=== PATIENT | male | born 1990 | race Caucasian/White ===

== ENCOUNTER 2022-03-20 20:49 | Emergency (ER) | payer OTHER ==
[~2022-03-20] VITALS: Ht 185.4 cm; Wt 88.5 kg
[2022-03-20] MEDS ORDERED: PROCHLORPERAZINE EDISYLATE 10 MG/2 ML VIAL IV ONE ×2 (21:15→23:30)
[2022-03-20] MEDS ORDERED: IV NS 1000 ML 1,000 ML IV ONE ×2 (21:15→22:30)
[2022-03-20] MEDS ORDERED: IV NORMAL SALINE 1000 ML BAG IV ONE (21:15)
[2022-03-20] MEDS ORDERED: HYDROMORPHONE 1 MG/1 ML DISP.SYRIN IV ONE ×2 (21:15→22:30)
[2022-03-20] MEDS ORDERED: PROCHLORPERAZINE EDISYLATE 10 MG/2 ML VIAL ONE ×2 (21:30→23:34)
--- NOTE | 2022-03-20 21:30 | NUR ---
Dr Tomas at bedside, MSE in progress
[2022-03-20] MEDS ORDERED: HYDROMORPHONE 1 MG/1 ML DISP.SYRIN ONE ×2 (21:41→22:33)
[2022-03-20 21:59] LABS: HEMATOCRIT 47.9 % (36.7-47.1); MEAN CORPUSCULAR HEMOGLOBIN 30.1 uug (23.8-33.4); MEAN CORPUSCULAR VOLUME 87.5 fL (73.0-96.2); PLATELET COUNT (AUTO) 183 K/uL (152-348)
[2022-03-20 22:03] LABS: CREATININE 1.1 mg/dL (0.6-1.3); POTASSIUM 3.7 mmol/L (3.5-5.1)
[2022-03-20 22:09] LABS: BILIRUBIN,DIRECT 0.2 mg/dL (0.0-0.2); BILIRUBIN,TOTAL 1.2 mg/dL (0.2-1.0); TOTAL PROTEIN, SERUM 7.7 g/dL (6.4-8.2)
--- NOTE | 2022-03-21 01:36 | NUR ---
Patient will be transfered to [facility] under care of Dr Henderson ambulance ETA [id number] [phone]
[2022-03-21] MEDS ORDERED: HYDROMORPHONE 1 MG/1 ML DISP.SYRIN IV ONE (01:45)
[2022-03-21] MEDS ORDERED: ONDANSETRON 4 MG/2 ML VIAL IV ONE (01:45)
[2022-03-21] MEDS ORDERED: IV NS 1000 ML 1,000 ML IV ONE (01:45)
[2022-03-21] MEDS ORDERED: ONDANSETRON 4 MG/2 ML VIAL ONE (01:50)
--- NOTE | 2022-03-21 02:12 | NUR ---
report given to Aby FARRELL - Jose Guzman
--- NOTE | 2022-03-21 02:22 | NUR ---
[facility] at bedside for trasportation to [facility]
--- NOTE | 2022-03-21 02:38 | NUR ---
Patient Tranfers to [facility] via [facility] ambulance unit [address] Physician: Dr Henderson
== END 2022-03-21 02:40 | disposition short-term general hospital (02) ==
LOC: ER 20:49
DX: K85.90 Acute pancreatitis without necrosis or infection, unspecified (principal); E86.0 Dehydration; D72.810 Lymphocytopenia; Z20.822 Contact with and (suspected) exposure to COVID-19
CPT/HCPCS: 99285; 96374; 76705; 96375 ×2; 96361 ×2; 87426; 80076; 80048; 83690; 85025; 36415; 96376; J0780 ×2; J1170 ×2; J7040 ×3; J2405